=== PATIENT | male | born 1990 | race Caucasian/White ===

== ENCOUNTER 2018-07-14 20:34 | Emergency (ER) | payer OTHER ==
--- NOTE | 2018-07-14 22:59 | ED GENERAL ADULT ---
History of Present Illness General Chief Complaint: General Adult Stated Complaint: SPLINTER UNDER R INDEX NAIL Source: patient Exam Limitations: no limitations Vital Signs & Intake/Output Vital Signs & Intake/Output Vital Signs Date Time Temp Pulse Resp B/P B/P Pulse O2 O2 Flow FiO2 Mean Ox Delivery Rate 07/14 2305 98.7 94 18 144/88 99 Room Air 07/144 97 Room Air 07/14 2058 98.9 96 17 152/94 97 Room Air Allergies Coded Allergies: Penicillins (Intermediate, HIVES 07/14/18) amoxicillin (Intermediate, HIVES 07/14/18) Triage Note: PT TO ED WITH C/O WOOD SPLINTER UNDER RIGHT INDEX FINGER NAILBED. BELIEVES TETANUS IS UTD. INCIDENT HAPPENED TODAY. Triage Nurses Notes Reviewed? yes Onset: Abrupt Duration: hour(s): Timing: single episode today HPI: 28-year-old otherwise healthy male presenting with wood splinter underneath his right index fingernail. 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 [place] a splinter go underneath the nail. Has been attempting to remove it without success. Denies numbness or paresthesias. He is unsure if his tetanus is up-to -date. (Beatrice Hatch) Past History Travel History Traveled to [place] past 21 day No Medical History Any Pertinent Medical History? none Tetanus Vaccine: 07/14/18 Surgical History Surgical History: non-contributory Psychosocial History What is your primary language Frisian Tobacco Use: Never used Family History Hx Contributory? No (Beatrice Hatch) Review of Systems Review of Systems Constitutional: Reports: no symptoms. EENTM: Reports: no symptoms. Respiratory: Reports: no symptoms. Cardiovascular: Reports: no symptoms. GI: Reports: no symptoms. Genitourinary: Reports: no symptoms. Musculoskeletal: Reports: see HPI. Skin: Reports: see HPI. Neurological/Psychological: Reports: no symptoms. Hematologic/Endocrine: Reports: no symptoms. Immunologic/Allergic: Reports: no symptoms. All Other Systems: Reviewed and Negative (Beatrice Hatch) Physical Exam Physical Exam General Appearance: well developed/nourished, no apparent distress, alert, awake Comments: Gen.: Well-nourished, well-developed, no acute distress. Head: Normocephalic, atraumatic. 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 No CVA/TIA Diagnosis: No Sepsis Present: No Sepsis Focused Exam Completed? No (Beatrice Hatch) Progress Differential Diagnoses I considered the following diagnoses in my evaluation of the patient: [Foreign body, low concern for infection] Plan of Care: Finger was anesthetized with 1% lidocaine with a digital block. The distal nail edge was very subtly lifted and a wooden splinter was removed intact. Nail was not displaced enough to require suturing. Counseled on supportive care and strict return precautions. Initial ED EKG: none (Beatrice Hatch) Departure Departure Disposition: HOME OR SELF CARE Condition: Stable Clinical Impression Primary Impression: Splinter Referrals: Tomasa BARRAGAN,Harrison Gandhi (PCP/Family) Additional Instructions: Keep the area clean and dry. Cover the area while at work. Follow-up with your primary care provider for reevaluation. Return to the emergency department for any new or worsening symptoms. Departure Forms: Customer Survey General Discharge Information (Beatrice Hatch) PA/[employer] Co-Sign Statement Statement: ED Attending supervision documentation- [] I saw and evaluated the patient. I have also reviewed all the pertinent lab results and diagnostic results. I agree with the findings and the plan of care as documented in the PA's/[employer]'s documentation. [x] I have reviewed the ED Record and agree with the PA's/[employer]'s documentation. [] Additions or exceptions (if any) to the PAs/[employer]'s note and plan are summarized below: [] (David Brizuela DO) Critical Care Note Critical Care Note Critical Care Time: non-applicable (Jason CROWE,Beatrice)
[2018-07-14 23:05] VITALS: BP 144/88
== END 2018-07-14 23:07 ==
LOC: ERH 20:34
DX: S60.450A Superficial foreign body of right index finger, initial encounter (principal); W45.8XXA Other foreign body or object entering through skin, initial encounter; Y92.89 Other specified places as the place of occurrence of the external cause; Y93.89 Activity, other specified
CPT/HCPCS: 90471; 90714; J2001